=== PATIENT | male | born 1960 | race Caucasian/White ===

== ENCOUNTER 2016-10-28 00:52 | Inpatient (IN) | payer OTHER ==
[~2016-10-28] VITALS: Ht 180.3 cm; Wt 124.5 kg
[2016-10-28] MEDS ORDERED: SODIUM CHLORIDE FLUSH 10ML SYR IVF ONE (01:00)
[2016-10-28 01:28] LABS: HEMATOCRIT 45.7 % (39.2-51.8); HEMOGLOBIN 15.5 g/dL (13.7-18.0); WHITE BLOOD COUNT 10.4 x10^3/uL (3.4-10)
[2016-10-28] MEDS ORDERED: MAALOX/HYOSCYAMINE/LIDOCAINE 45 ML BTL PO ONE ×2 (01:30→16:00)
[2016-10-28] MEDS ORDERED: MAALOX/HYOSCYAMINE/LIDOCAINE 45 ML BTL ONE (01:33)
[2016-10-28 01:38] LABS: ASPARTATE AMINO TRANSFERASE 24 U/L (15-37); BLOOD UREA NITROGEN 19 mg/dL (7-18)
[2016-10-28 02:09] LABS: IS PT STATUS REG ER OR PRE ER? YES
[2016-10-28] MEDS ORDERED: CLOP75TA52 PO (02:25)
[2016-10-28] MEDS ORDERED: OMEP20TA62 PO (02:25)
[2016-10-28] MEDS ORDERED: SPIR25TA3 PO (02:25)
[2016-10-28] MEDS ORDERED: CARV6.252 PO (02:25)
[2016-10-28] MEDS ORDERED: ASPI-496 PO (02:25)
[2016-10-28] MEDS ORDERED: DOXY20TA5 PO (02:25)
[2016-10-28] MEDS ORDERED: LISI-170 PO (02:25)
[2016-10-28] MEDS ORDERED: HEPARIN 5,000 UNITS/ML, 1ML IV ONE (02:30)
[2016-10-28] MEDS ORDERED: HEPARIN 5,000 UNITS/ML, 1ML ONE (02:30)
[2016-10-28] MEDS ORDERED: HEPARIN 25,000 UNITS/500ML PMX 500 ML IV PRN ×2 (02:30→04:00)
[2016-10-28] MEDS ORDERED: NITROGLYCERIN OINT 2%, 1GM TP ONE ×2 (02:30)
[2016-10-28] MEDS ORDERED: HEPARIN 25,000 UNITS/500ML PMX 500 ML ONE (02:30)
[2016-10-28] MEDS ORDERED: HEPARIN 5,000 UNITS/ML, 1ML IV PRN ×2 (02:30→04:00)
[2016-10-28] MEDS ORDERED: MORPHINE SULFATE 4 MG/ML, 1ML ONE (02:50)
[2016-10-28] MEDS ORDERED: ONDANSETRON 2MG/ML, 2ML ONE ×2 (02:50→03:06)
[2016-10-28] MEDS ORDERED: MORPHINE SULFATE 4 MG/ML, 1ML IVPush PRN ×2 (03:00→15:30)
[2016-10-28] MEDS ORDERED: TEMAZEPAM 15 MG CAPSULE PO PRN (03:00)
[2016-10-28] MEDS ORDERED: NITROGLYCERIN 0.4 MG BOTTLE (25 TABS) SL PRN (03:00)
[2016-10-28] MEDS ORDERED: ONDANSETRON 2MG/ML, 2ML IVPush PRN (03:00)
[2016-10-28] MEDS ORDERED: ONDANSETRON 2MG/ML, 2ML IVPush ONE (03:00)
[2016-10-28] MEDS ORDERED: ACETAMINOPHEN 325 MG TABLET PO PRN ×2 (03:00→15:30)
[2016-10-28] MEDS ORDERED: morphine SULFATE 10 MG/ML, 1ML IVPush PRN (03:00)
[2016-10-28] MEDS ORDERED: LABETALOL 5MG/ML, 20ML IVPush PRN (03:00)
[2016-10-28] MEDS: ATORVASTATIN 80 MG TABLET PO SCH ×2 (03:30→21:09)
[2016-10-28 03:47] VITALS: BP 113/67
[2016-10-28 04:27] LABS: IS PT STATUS REG ER OR PRE ER? NO
[2016-10-28 05:05] VITALS: BP 113/67
[2016-10-28 07:35] VITALS: BP 111/73
[2016-10-28] MEDS ORDERED: ASPIRIN 81 MG TABLET EC PO SCH (09:00)
[2016-10-28] MEDS ORDERED: CARVEDILOL 6.25 MG TABLET PO SCH (09:00)
[2016-10-28] MEDS ORDERED: CLOPIDOGREL 75 MG TABLET PO SCH (09:00)
[2016-10-28] MEDS ORDERED: SPIRONOLACTONE 25 MG TABLET PO SCH (09:00)
[2016-10-28 09:05] LABS: IS PT STATUS REG ER OR PRE ER? NO
[2016-10-28] MEDS: CARVEDILOL 6.25 MG TABLET PO SCH ×2 (09:17→21:09)
[2016-10-28] MEDS: OMEPRAZOLE 20 MG CAPSULE.DR PO SCH (09:18)
[2016-10-28] MEDS: LISINOPRIL 20 MG TABLET PO SCH (09:18)
[2016-10-28] MEDS: FAMOTIDINE 20 MG/2 ML IVPush SCH ×2 (09:18→21:08)
[2016-10-28] MEDS: SODIUM CHLORIDE 0.9% 1,000 ML IV SCH ×2 (10:24→19:39)
[2016-10-28] MEDS ORDERED: TICAGRELOR 90 MG TABLET ONE ×2 (13:40→14:53)
[2016-10-28] MEDS ORDERED: FENTANYL PF 100 MCG/2ML ONE ×2 (13:40→15:06)
[2016-10-28] MEDS ORDERED: VERAPAMIL 2.5 MG/ML, 2ML ONE (13:40)
[2016-10-28] MEDS ORDERED: LIDOCAINE 2%, 20ML ONE (13:40)
[2016-10-28] MEDS ORDERED: BIVALIRUDIN 250 MG ONE (13:40)
[2016-10-28] MEDS ORDERED: MIDAZOLAM 1 MG/ML, 5ML ONE (13:40)
[2016-10-28] MEDS ORDERED: HEPARIN 1,000 UNITS/ML, 10ML ONE (13:41)
[2016-10-28] MEDS ORDERED: SODIUM CHLORIDE 0.9% 1,000 ML IV SCH (15:18)
[2016-10-28 15:30] VITALS: BP 149/91
[2016-10-28] MEDS: TICAGRELOR 90 MG TABLET PO SCH (21:08)
[2016-10-28 21:53] VITALS: BP 133/84
[2016-10-29 01:23] VITALS: BP 144/75
[2016-10-29 06:08] LABS: HEMATOCRIT 43.5 % (39.2-51.8); HEMOGLOBIN 14.8 g/dL (13.7-18.0); WHITE BLOOD COUNT 10.4 x10^3/uL (3.4-10)
[2016-10-29 06:25] LABS: ASPARTATE AMINO TRANSFERASE 46 U/L (15-37); BLOOD UREA NITROGEN 14 mg/dL (7-18)
[2016-10-29 06:58] VITALS: BP 137/85
[2016-10-29] MEDS: OMEPRAZOLE 20 MG CAPSULE.DR PO SCH (07:51)
[2016-10-29] MEDS: LISINOPRIL 20 MG TABLET PO SCH (07:51)
[2016-10-29] MEDS: CARVEDILOL 6.25 MG TABLET PO SCH (07:51)
[2016-10-29] MEDS: TICAGRELOR 90 MG TABLET PO SCH (07:51)
[2016-10-29] MEDS: FAMOTIDINE 20 MG/2 ML IVPush SCH (07:52)
[2016-10-29] MEDS ORDERED: ISOSORBIDE MONONITRATE ER 30 MG TABLET PO SCH (09:00)
[2016-10-29] MEDS ORDERED: ASPIRIN 81 MG TABLET EC PO SCH (09:00)
[2016-10-29] MEDS ORDERED: TICA90TA PO (12:30)
[2016-10-29] MEDS ORDERED: ISOS30TA8 PO (12:30)
[2016-10-29] MEDS ORDERED: ATOR-2 PO (12:30)
== END 2016-10-29 14:35 | disposition home or self-care (01) | DRG 246 ==
LOC: ED 02:33 → EDIP 02:35 → ED 03:05 → 5SO 03:35 → DCLOUNGE 10-29 14:02
PROVIDERS: ADMIT Internal Medicine; ATTEND Internal Medicine
PROC: 4A023N7 Measurement of Cardiac Sampling and Pressure, Left Heart, Percutaneous Approach (ICD-10-PCS; principal; 2016-10-28)
PROC: 027035Z Dilation of Coronary Artery, One Artery with Two Drug-eluting Intraluminal Devices, Percutaneous Approach (ICD-10-PCS; 2016-10-28)
PROC: B2111ZZ Fluoroscopy of Multiple Coronary Arteries using Low Osmolar Contrast (ICD-10-PCS; 2016-10-28)
PROC: B2151ZZ Fluoroscopy of Left Heart using Low Osmolar Contrast (ICD-10-PCS; 2016-10-28)
DX: I25.10 Atherosclerotic heart disease of native coronary artery without angina pectoris (principal); I21.4 Non-ST elevation (NSTEMI) myocardial infarction; I11.0 Hypertensive heart disease with heart failure; I50.32 Chronic diastolic (congestive) heart failure; E66.9 Obesity, unspecified; E78.5 Hyperlipidemia, unspecified; Z68.38 Body mass index [BMI] 38.0-38.9, adult; F41.9 Anxiety disorder, unspecified; I25.5 Ischemic cardiomyopathy; K21.9 Gastro-esophageal reflux disease without esophagitis; Z79.82 Long term (current) use of aspirin; Z87.891 Personal history of nicotine dependence; Z95.5 Presence of coronary angioplasty implant and graft
CPT/HCPCS: 36415; 71010; 80053; 80061; 83036; 83735; 83880; 84100; 84484; 85025; 85520; 85610; 85730; 92920; 93005; 93306; 93458; 93571; 93572; 96374; 96375; 99156; 99157; C1769; C9600; J0583; J1644; J2250; J2405; J3010; J3490; 92928; C1725; C1874; C1887; J2270; J7030; Q9967; S0028

== ENCOUNTER 2017-02-18 22:02 | Inpatient (IN) | payer OTHER ==
[~2017-02-18] VITALS: Ht 180.3 cm; Wt 123.3 kg
[~2017-02-18 22:02] MED LIST: ASPI-496 PO; ATOR-2 PO; CARV6.252 PO; CLOP75TA52 PO; DOXY20TA5 PO; ISOS30TA8 PO; LISI-170 PO; OMEP20TA62 PO; SPIR25TA3 PO; TICA90TA PO
[2017-02-18] MEDS ORDERED: MAALOX/HYOSCYAMINE/LIDOCAINE 45 ML BTL ONE (23:23)
[2017-02-18] MEDS ORDERED: ASPIRIN 81 MG TABLET CHEW ONE (23:23)
[2017-02-18] MEDS ORDERED: LABETALOL 5MG/ML, 20ML IVPush ONE (23:30)
[2017-02-18] MEDS ORDERED: ASPIRIN 81 MG TABLET CHEW PO ONE (23:30)
[2017-02-18] MEDS ORDERED: MAALOX/HYOSCYAMINE/LIDOCAINE 45 ML BTL PO ONE (23:30)
[2017-02-18] MEDS ORDERED: LABETALOL 5MG/ML, 20ML ONE (23:32)
[2017-02-18 23:36] LABS: BASOPHILS # (AUTO) 0.05 x10^3/uL (0-0.1); BASOPHILS % (AUTO) 0 % (0-1); EOSINOPHILS # (AUTO) 0.22 x10^3/uL (0-0.4); EOSINOPHILS % (AUTO) 2 % (1-7); LYMPHOCYTES # (AUTO) 2.26 x10^3/uL (1-3.4); LYMPHOCYTES % (AUTO) 19 % (22-44); MD NO; MEAN CORPUSCULAR HEMOGLOBIN 29.1 pg (27.5-34.5); MEAN CORPUSCULAR HGB CONC 33.8 g/dL (33.2-36.2); MEAN CORPUSCULAR VOLUME 86.1 fL (81-97); MEAN PLATELET VOLUME 12.1 fL (7.4-10.4); MONOCYTES # (AUTO) 0.87 x10^3/uL (0.2-0.8); MONOCYTES % (AUTO) 7 % (2-9); NEUTROPHILS # (AUTO) 8.47 x10^3/uL (1.8-6.8); NEUTROPHILS % (AUTO) 71 % (42-75); PLATELET COUNT 195 x10^3/uL (130-400); RED BLOOD COUNT 5.48 x10^6/uL (4.38-5.82)
[2017-02-18 23:46] LABS: ALBUMIN 3.7 g/dL (3.4-5.0); ANION GAP 8 mmol/L (5-15); CALCIUM 8.6 mg/dL (8.5-10.1); CHLORIDE 106 mmol/L (98-107)
[2017-02-18 23:52] LABS: ALANINE AMINOTRANSFERASE 49 U/L (12-78); ALKALINE PHOSPHATASE 96 U/L (45-117); BILIRUBIN,TOTAL 0.7 mg/dL (0.2-1.0); CREATININE 1.07 mg/dL (0.7-1.3); TOTAL PROTEIN 7.2 g/dL (6.4-8.2)
[2017-02-18 23:53] LABS: TROPONIN I 0.247 ng/mL (0.000-0.045)
[2017-02-19] VITALS (7 sets, daily range): BP systolic 121–177; BP diastolic 75–108
[2017-02-19] MEDS ORDERED: CARV6.2512 PO (00:04)
[2017-02-19] MEDS ORDERED: CLOP75TA52 PO (00:04)
[2017-02-19] MEDS ORDERED: FURO-93 PO (00:04)
[2017-02-19] MEDS ORDERED: DOCUSATE 100 MG CAPSULE PO PRN (00:30)
[2017-02-19] MEDS ORDERED: MORPHINE SULFATE 4 MG/ML, 1ML IVPush PRN (00:30)
[2017-02-19] MEDS ORDERED: morphine SULFATE 10 MG/ML, 1ML IVPush PRN (00:30)
[2017-02-19] MEDS ORDERED: ENOXAPARIN 120MG/0.8ML SQ SCH (00:30)
[2017-02-19] MEDS ORDERED: POLYETHYLENE GLYCOL 17 GM PACKET PO PRN (00:30)
[2017-02-19] MEDS ORDERED: ACETAMINOPHEN 325 MG TABLET PO PRN (00:30)
[2017-02-19] MEDS ORDERED: ONDANSETRON 2MG/ML, 2ML IVPush PRN ×2 (00:30)
[2017-02-19] MEDS ORDERED: LABETALOL 5MG/ML, 20ML IVPush PRN (00:30)
[2017-02-19] MEDS ORDERED: NITROGLYCERIN 0.4 MG BOTTLE (25 TABS) SL PRN (00:30)
[2017-02-19] MEDS ORDERED: BISACODYL 10 MG SUPP PR PRN (00:30)
[2017-02-19] MEDS ORDERED: ASPIRIN 325 MG TABLET EC PO SCH (06:00)
[2017-02-19 07:10] LABS: INTERNATIONAL NORMALIZED RATIO 1.05 (0.93-1.1); PROTHROMBIN TIME 10.9 Seconds (9.6-11.5)
[2017-02-19 07:14] LABS: TROPONIN I 0.242 ng/mL (0.000-0.045)
[2017-02-19] MEDS ORDERED: RANI150T8 PO (08:12)
[2017-02-19] MEDS ORDERED: ASPIRIN 81 MG TABLET EC PO SCH (09:00)
[2017-02-19] MEDS ORDERED: OMEPRAZOLE 20 MG CAPSULE.DR PO SCH (09:00)
[2017-02-19] MEDS: SPIRONOLACTONE 25 MG TABLET PO SCH (09:09)
[2017-02-19] MEDS: LISINOPRIL 20 MG TABLET PO SCH (09:09)
[2017-02-19] MEDS: SODIUM CHLORIDE FLUSH 10ML SYR IVF SCH ×2 (09:09→20:52)
[2017-02-19] MEDS: CARVEDILOL 6.25 MG TABLET PO SCH ×2 (09:09→20:51)
[2017-02-19] MEDS: FUROSEMIDE 20 MG TABLET PO SCH (09:10)
[2017-02-19] MEDS: ISOSORBIDE MONONITRATE ER 30 MG TABLET PO SCH (09:10)
[2017-02-19] MEDS: CLOPIDOGREL 75 MG TABLET PO SCH (09:10)
[2017-02-19] MEDS ORDERED: DOXY75TA PO (10:10)
[2017-02-19] MEDS ORDERED: REGADENOSON 0.4 MG/5 ML SYRINGE ONE (10:47)
[2017-02-19 14:18] LABS: TROPONIN I 0.214 ng/mL (0.000-0.045)
[2017-02-19] MEDS ORDERED: MAALOX/HYOSCYAMINE/LIDOCAINE 45 ML BTL PO ONE (15:30)
[2017-02-19] MEDS: OMEPRAZOLE 20 MG CAPSULE.DR PO SCH (20:51)
[2017-02-19] MEDS ORDERED: ATORVASTATIN 80 MG TABLET PO SCH (21:00)
[2017-02-20 01:23] VITALS: BP 121/77
[2017-02-20 05:16] LABS: BASOPHILS # (AUTO) 0.03 x10^3/uL (0-0.1); BASOPHILS % (AUTO) 0 % (0-1); EOSINOPHILS # (AUTO) 0.21 x10^3/uL (0-0.4); EOSINOPHILS % (AUTO) 2 % (1-7); LYMPHOCYTES # (AUTO) 2.75 x10^3/uL (1-3.4); LYMPHOCYTES % (AUTO) 27 % (22-44); MD NO; MEAN CORPUSCULAR HGB CONC 33.4 g/dL (33.2-36.2); MEAN CORPUSCULAR VOLUME 86.7 fL (81-97); MEAN PLATELET VOLUME 12.2 fL (7.4-10.4); MONOCYTES # (AUTO) 0.86 x10^3/uL (0.2-0.8); MONOCYTES % (AUTO) 8 % (2-9); NEUTROPHILS # (AUTO) 6.39 x10^3/uL (1.8-6.8); NEUTROPHILS % (AUTO) 63 % (42-75); PLATELET COUNT 179 x10^3/uL (130-400); RED BLOOD COUNT 5.23 x10^6/uL (4.38-5.82); RED CELL DISTRIBUTION WIDTH 14.3 % (9.4-14.8)
[2017-02-20 05:19] LABS: ANION GAP 8 mmol/L (5-15); CALCIUM 8.2 mg/dL (8.5-10.1); CHLORIDE 105 mmol/L (98-107)
[2017-02-20 05:22] LABS: CREATININE 1.04 mg/dL (0.7-1.3)
[2017-02-20] MEDS ORDERED: ASPIRIN 81 MG TABLET EC PO SCH (06:00)
[2017-02-20 07:35] VITALS: BP 159/84
[2017-02-20] MEDS: FUROSEMIDE 20 MG TABLET PO SCH (10:11)
[2017-02-20] MEDS: SODIUM CHLORIDE FLUSH 10ML SYR IVF SCH (10:11)
[2017-02-20] MEDS: CLOPIDOGREL 75 MG TABLET PO SCH (10:12)
[2017-02-20] MEDS: LISINOPRIL 20 MG TABLET PO SCH (10:12)
[2017-02-20] MEDS: CARVEDILOL 6.25 MG TABLET PO SCH (10:12)
[2017-02-20] MEDS: OMEPRAZOLE 20 MG CAPSULE.DR PO SCH (10:12)
[2017-02-20] MEDS: ISOSORBIDE MONONITRATE ER 30 MG TABLET PO SCH (10:12)
[2017-02-20] MEDS: SPIRONOLACTONE 25 MG TABLET PO SCH (10:12)
[2017-02-20 13:10] VITALS: BP 127/78
== END 2017-02-20 18:38 | disposition home or self-care (01) | DRG 282 ==
LOC: ED 23:59 → EDIP 02-19 00:10 → 5SO 02-19 07:28
PROVIDERS: ADMIT Hospitalist; ATTEND Hospitalist
DX: I21.4 Non-ST elevation (NSTEMI) myocardial infarction (principal); I11.0 Hypertensive heart disease with heart failure; I50.9 Heart failure, unspecified; D72.829 Elevated white blood cell count, unspecified; E78.5 Hyperlipidemia, unspecified; F41.9 Anxiety disorder, unspecified; I25.10 Atherosclerotic heart disease of native coronary artery without angina pectoris; I25.5 Ischemic cardiomyopathy; R61 Generalized hyperhidrosis; E66.9 Obesity, unspecified; K21.9 Gastro-esophageal reflux disease without esophagitis; Z79.82 Long term (current) use of aspirin; Z87.891 Personal history of nicotine dependence; Z95.5 Presence of coronary angioplasty implant and graft; Z68.37 Body mass index [BMI] 37.0-37.9, adult
CPT/HCPCS: 36415; 71045; 78452; 80048; 80053; 83690; 84484; 85025; 85610; 93005; 93017; 93306; 96374; J2785; A9502; C9898

== ENCOUNTER 2017-05-18 06:16 | Inpatient (IN) | payer OTHER ==
[~2017-05-18] VITALS: Ht 180.3 cm; Wt 125.8 kg
[~2017-05-18 06:16] MED LIST changes: +CARV6.2512 PO; +DOXY75TA PO; +FURO-93 PO; +RANI150T8 PO
[2017-05-18 06:47] LABS: BASOPHILS # (AUTO) 0.03 x10^3/uL (0-0.1); BASOPHILS % (AUTO) 0 % (0-1); EOSINOPHILS # (AUTO) 0.15 x10^3/uL (0-0.4); EOSINOPHILS % (AUTO) 2 % (1-7); LYMPHOCYTES # (AUTO) 1.58 x10^3/uL (1-3.4); LYMPHOCYTES % (AUTO) 18 % (22-44); MD NO; MEAN CORPUSCULAR HEMOGLOBIN 29.5 pg (27.5-34.5); MEAN CORPUSCULAR VOLUME 86.8 fL (81-97); MEAN PLATELET VOLUME 12.2 fL (7.4-10.4); MONOCYTES # (AUTO) 0.64 x10^3/uL (0.2-0.8); MONOCYTES % (AUTO) 7 % (2-9); NEUTROPHILS # (AUTO) 6.57 x10^3/uL (1.8-6.8); NEUTROPHILS % (AUTO) 73 % (42-75); PLATELET COUNT 158 x10^3/uL (130-400); RED BLOOD COUNT 4.62 x10^6/uL (4.38-5.82); RED CELL DISTRIBUTION WIDTH 14.3 % (9.4-14.8)
[2017-05-18 06:57] LABS: ALBUMIN 3.2 g/dL (3.4-5.0); ANION GAP 7 mmol/L (5-15); CALCIUM 7.9 mg/dL (8.5-10.1); CHLORIDE 107 mmol/L (98-107); CREATININE 1.04 mg/dL (0.7-1.3)
[2017-05-18 07:04] LABS: TROPONIN I 0.138 ng/mL (0.000-0.045)
[2017-05-18] MEDS ORDERED: MAALOX/HYOSCYAMINE/LIDOCAINE 45 ML BTL ONE (07:23)
[2017-05-18] MEDS ORDERED: FENTANYL PF 100 MCG/2ML IV ONE (07:30)
[2017-05-18] MEDS: OMEPRAZOLE 20 MG CAPSULE.DR PO SCH (07:30)
[2017-05-18] MEDS ORDERED: MAALOX/HYOSCYAMINE/LIDOCAINE 45 ML BTL PO ONE (07:30)
[2017-05-18] MEDS ORDERED: ETOMIDATE 20 MG/10 ML IVPush ONE (07:30)
[2017-05-18 08:57] VITALS: BP 132/82
[2017-05-18] MEDS: FUROSEMIDE 20 MG TABLET PO SCH (09:00)
[2017-05-18] MEDS ORDERED: FAMOTIDINE 20 MG TABLET PO PRN (09:00)
[2017-05-18] MEDS: CARVEDILOL 6.25 MG TABLET PO SCH ×2 (09:00→20:14)
[2017-05-18] MEDS ORDERED: POLYETHYLENE GLYCOL 17 GM PACKET PO PRN (09:00)
[2017-05-18] MEDS: ASPIRIN 81 MG TABLET EC PO SCH (09:00)
[2017-05-18] MEDS ORDERED: ONDANSETRON ODT 4 MG PO PRN (09:00)
[2017-05-18] MEDS ORDERED: morphine SULFATE 10 MG/ML, 1ML IVPush PRN (09:00)
[2017-05-18] MEDS ORDERED: BISACODYL 10 MG SUPP PR PRN (09:00)
[2017-05-18] MEDS ORDERED: ACETAMINOPHEN 325 MG TABLET PO PRN (09:00)
[2017-05-18] MEDS: ISOSORBIDE MONONITRATE ER 30 MG TABLET PO SCH (09:00)
[2017-05-18] MEDS ORDERED: ENALAPRILAT 1.25 MG/ML, 2ML IVPush PRN (09:00)
[2017-05-18] MEDS ORDERED: LABETALOL 5MG/ML, 20ML IVPush PRN (09:00)
[2017-05-18] MEDS ORDERED: DOCUSATE 100 MG CAPSULE PO PRN (09:00)
[2017-05-18] MEDS ORDERED: LISINOPRIL 20 MG TABLET PO SCH (09:00)
[2017-05-18] MEDS ORDERED: NITROGLYCERIN 0.4 MG BOTTLE (25 TABS) SL PRN (09:00)
[2017-05-18] MEDS: CLOPIDOGREL 75 MG TABLET PO SCH (11:14)
[2017-05-18 11:16] LABS: TROPONIN I 0.416 ng/mL (0.000-0.045)
[2017-05-18 14:20] VITALS: BP 130/77
[2017-05-18 14:35] LABS: TROPONIN I 0.606 ng/mL (0.000-0.045)
[2017-05-18] MEDS: LISINOPRIL 20 MG TABLET PO SCH (20:23)
[2017-05-18 20:26] VITALS: BP 152/94
[2017-05-18] MEDS ORDERED: ATORVASTATIN 80 MG TABLET PO SCH (21:00)
[2017-05-19 01:26] VITALS: BP 126/78
[2017-05-19 06:32] VITALS: BP 137/91
[2017-05-19] MEDS: ASPIRIN 81 MG TABLET EC PO SCH (08:41)
[2017-05-19] MEDS: CLOPIDOGREL 75 MG TABLET PO SCH (08:41)
[2017-05-19] MEDS: LISINOPRIL 20 MG TABLET PO SCH (08:41)
[2017-05-19] MEDS: OMEPRAZOLE 20 MG CAPSULE.DR PO SCH (08:41)
[2017-05-19] MEDS: CARVEDILOL 6.25 MG TABLET PO SCH (08:42)
[2017-05-19] MEDS: FUROSEMIDE 20 MG TABLET PO SCH (08:42)
[2017-05-19] MEDS: ISOSORBIDE MONONITRATE ER 30 MG TABLET PO SCH (08:43)
[2017-05-19] MEDS ORDERED: SPIRONOLACTONE 25 MG TABLET PO SCH (09:00)
[2017-05-19] MEDS ORDERED: NITR0.3T5 SL (09:08)
[2017-05-19] MEDS ORDERED: CARV12.543 PO (09:08)
== END 2017-05-19 11:19 | disposition home or self-care (01) | DRG 313 ==
LOC: ED 07:10 → EDIP 07:28 → 5SO 08:50 → DCLOUNGE 05-19 11:04
PROVIDERS: ADMIT Hospitalist; ATTEND Hospitalist
DX: R07.9 Chest pain, unspecified (principal); I25.110 Atherosclerotic heart disease of native coronary artery with unstable angina pectoris; I11.0 Hypertensive heart disease with heart failure; I50.9 Heart failure, unspecified; I25.2 Old myocardial infarction; E66.9 Obesity, unspecified; E78.5 Hyperlipidemia, unspecified; F41.9 Anxiety disorder, unspecified; I25.5 Ischemic cardiomyopathy; K21.9 Gastro-esophageal reflux disease without esophagitis; K59.00 Constipation, unspecified; Z87.891 Personal history of nicotine dependence; Z95.5 Presence of coronary angioplasty implant and graft; Z68.38 Body mass index [BMI] 38.0-38.9, adult
CPT/HCPCS: 36415; 71045; 80048; 82040; 83735; 84484; 85025; 93005; 99285

== ENCOUNTER 2017-05-26 21:27 | Emergency (ER) | payer OTHER ==
[~2017-05-26] VITALS: Ht 180.3 cm; Wt 122.2 kg
[~2017-05-26 21:27] MED LIST changes: +CARV12.543 PO; +NITR0.3T5 SL
[2017-05-26] MEDS ORDERED: SODIUM CHLORIDE FLUSH 10ML SYR IVF ONE (22:30)
[2017-05-26 22:53] LABS: BASOPHILS # (AUTO) 0.05 x10^3/uL (0-0.1); BASOPHILS % (AUTO) 1 % (0-1); EOSINOPHILS % (AUTO) 2 % (1-7); LYMPHOCYTES # (AUTO) 2.33 x10^3/uL (1-3.4); LYMPHOCYTES % (AUTO) 20 % (22-44); MD NO; MEAN CORPUSCULAR HEMOGLOBIN 29.2 pg (27.5-34.5); MEAN CORPUSCULAR HGB CONC 33.6 g/dL (33.2-36.2); MEAN PLATELET VOLUME 12.7 fL (7.4-10.4); MONOCYTES # (AUTO) 1.03 x10^3/uL (0.2-0.8); MONOCYTES % (AUTO) 9 % (2-9); NEUTROPHILS # (AUTO) 8.27 x10^3/uL (1.8-6.8); NEUTROPHILS % (AUTO) 70 % (42-75); PLATELET COUNT 211 x10^3/uL (130-400); RED BLOOD COUNT 5.13 x10^6/uL (4.38-5.82); RED CELL DISTRIBUTION WIDTH 14.1 % (9.4-14.8)
[2017-05-26] MEDS ORDERED: ASPI-515 PO (22:55)
[2017-05-26] MEDS ORDERED: DOXY75TA PO (22:55)
[2017-05-26 23:01] LABS: INTERNATIONAL NORMALIZED RATIO 1.04 (0.93-1.1); PROTHROMBIN TIME 10.7 Seconds (9.6-11.5)
[2017-05-26 23:04] LABS: MICROSCOPIC NOT IND
[2017-05-26 23:06] LABS: ALANINE AMINOTRANSFERASE 41 U/L (12-78); ALBUMIN 3.6 g/dL (3.4-5.0); ANION GAP 10 mmol/L (5-15); CHLORIDE 105 mmol/L (98-107); CREATININE 1.18 mg/dL (0.7-1.3)
[2017-05-26 23:08] LABS: ALKALINE PHOSPHATASE 93 U/L (45-117); BILIRUBIN,TOTAL 0.6 mg/dL (0.2-1.0); TOTAL PROTEIN 7.5 g/dL (6.4-8.2); TROPONIN I < 0.015 ng/mL (0.000-0.045)
[2017-05-26 23:09] LABS: CULTURE INDICATED? NO
[2017-05-26 23:35] VITALS: BP 145/98
== END 2017-05-26 23:38 | disposition home or self-care (01) ==
LOC: ED 23:20
DX: K59.00 Constipation, unspecified (principal); R10.84 Generalized abdominal pain; I10 Essential (primary) hypertension; E78.5 Hyperlipidemia, unspecified; I25.10 Atherosclerotic heart disease of native coronary artery without angina pectoris; K21.9 Gastro-esophageal reflux disease without esophagitis; I25.2 Old myocardial infarction
CPT/HCPCS: 36415; 74022; 80053; 81003; 83690; 84484; 85025; 85610; 85730; 93005; 99285

== ENCOUNTER 2017-12-07 22:40 | Emergency (ER) | payer OTHER ==
[~2017-12-07] VITALS: Ht 180.3 cm; Wt 113.6 kg
[~2017-12-07 22:40] MED LIST changes: +ASPI-515 PO; +RANI150T23 PO; -RANI150T8 PO; -SPIR25TA3 PO; +SPIR25TA5 PO
[2017-12-07 23:10] LABS: BASOPHILS # (AUTO) 0.04 x10^3/uL (0-0.1); BASOPHILS % (AUTO) 0 % (0-1); EOSINOPHILS # (AUTO) 0.21 x10^3/uL (0-0.4); EOSINOPHILS % (AUTO) 2 % (1-7); LYMPHOCYTES # (AUTO) 2.27 x10^3/uL (1-3.4); LYMPHOCYTES % (AUTO) 20 % (22-44); MD NO; MEAN CORPUSCULAR HGB CONC 33.6 g/dL (33.2-36.2); MEAN CORPUSCULAR VOLUME 89.2 fL (81-97); MEAN PLATELET VOLUME 12.5 fL (7.4-10.4); MONOCYTES # (AUTO) 0.55 x10^3/uL (0.2-0.8); MONOCYTES % (AUTO) 5 % (2-9); NEUTROPHILS # (AUTO) 8.45 x10^3/uL (1.8-6.8); NEUTROPHILS % (AUTO) 73 % (42-75); PLATELET COUNT 185 x10^3/uL (130-400); RED CELL DISTRIBUTION WIDTH 14.6 % (9.4-14.8)
[2017-12-07 23:22] LABS: ALBUMIN 3.7 g/dL (3.4-5.0); ANION GAP 8 mmol/L (5-15); CALCIUM 8.3 mg/dL (8.5-10.1); CHLORIDE 104 mmol/L (98-107); CREATININE 1.15 mg/dL (0.7-1.3)
[2017-12-07 23:25] LABS: TROPONIN I < 0.015 ng/mL (0.000-0.045)
[2017-12-07 23:33] VITALS: BP 155/94
== END 2017-12-08 00:04 | disposition home or self-care (01) ==
LOC: ED 12-08 00:01
DX: R07.89 Other chest pain (principal); R10.13 Epigastric pain; K21.9 Gastro-esophageal reflux disease without esophagitis; I25.2 Old myocardial infarction; E78.5 Hyperlipidemia, unspecified; I10 Essential (primary) hypertension; I25.10 Atherosclerotic heart disease of native coronary artery without angina pectoris; Z95.5 Presence of coronary angioplasty implant and graft
CPT/HCPCS: 36415; 74022; 80048; 82040; 83880; 84484; 85025; 93005; 99285

== ENCOUNTER 2018-01-25 23:06 | Emergency (ER) | payer OTHER ==
[~2018-01-25] VITALS: Ht 180.3 cm; Wt 113.0 kg
[2018-01-25] MEDS ORDERED: SODIUM CHLORIDE FLUSH 10ML SYR IVF ONE (23:30)
[2018-01-25 23:51] LABS: BASOPHILS # (AUTO) 0.03 x10^3/uL (0-0.1); BASOPHILS % (AUTO) 0 % (0-1); EOSINOPHILS # (AUTO) 0.22 x10^3/uL (0-0.4); EOSINOPHILS % (AUTO) 2 % (1-7); LYMPHOCYTES # (AUTO) 2.32 x10^3/uL (1-3.4); LYMPHOCYTES % (AUTO) 22 % (22-44); MD NO; MEAN CORPUSCULAR HEMOGLOBIN 29.7 pg (27.5-34.5); MEAN CORPUSCULAR HGB CONC 33.9 g/dL (33.2-36.2); MEAN CORPUSCULAR VOLUME 87.6 fL (81-97); MEAN PLATELET VOLUME 12.5 fL (7.4-10.4); MONOCYTES # (AUTO) 0.71 x10^3/uL (0.2-0.8); MONOCYTES % (AUTO) 7 % (2-9); NEUTROPHILS # (AUTO) 7.47 x10^3/uL (1.8-6.8); NEUTROPHILS % (AUTO) 69 % (42-75); PLATELET COUNT 186 x10^3/uL (130-400); RED BLOOD COUNT 5.04 x10^6/uL (4.38-5.82); RED CELL DISTRIBUTION WIDTH 14.3 % (9.4-14.8)
[2018-01-26 00:01] LABS: ALBUMIN 3.7 g/dL (3.4-5.0); ANION GAP 8 mmol/L (5-15); CALCIUM 8.5 mg/dL (8.5-10.1); CHLORIDE 105 mmol/L (98-107); CREATININE 1.29 mg/dL (0.7-1.3)
[2018-01-26 00:04] LABS: TROPONIN I < 0.015 ng/mL (0.000-0.045)
[2018-01-26] MEDS ORDERED: MAALOX/HYOSCYAMINE/LIDOCAINE 45 ML BTL ONE (00:06)
[2018-01-26 00:09] VITALS: BP 132/70
[2018-01-26] MEDS ORDERED: MAALOX/HYOSCYAMINE/LIDOCAINE 45 ML BTL PO ONE (00:30)
== END 2018-01-26 01:12 | disposition home or self-care (01) ==
LOC: ED 23:45
DX: R07.9 Chest pain, unspecified (principal); K21.9 Gastro-esophageal reflux disease without esophagitis; I25.2 Old myocardial infarction; E78.5 Hyperlipidemia, unspecified; I10 Essential (primary) hypertension; I25.10 Atherosclerotic heart disease of native coronary artery without angina pectoris
CPT/HCPCS: 36415; 71045; 80048; 82040; 84484; 85025; 93005; 99284